=== PATIENT | female | born 1980 | race Hispanic/Latino ===

== ENCOUNTER 2020-09-03 17:15 | Emergency (ER) | payer OTHER ==
[~2020-09-03] VITALS: Ht 157.5 cm; Wt 95.7 kg
[2020-09-03 20:20] VITALS: BP 142/90
== END 2020-09-03 20:20 | disposition home or self-care (01) ==
LOC: FSED 17:37
DX: R10.11 Right upper quadrant pain (principal); K80.80 Other cholelithiasis without obstruction
CPT/HCPCS: 99283